=== PATIENT | female | born 1945 | race Two or more races ===

== ENCOUNTER 2021-03-30 14:19 | Emergency (ER) | payer OTHER ==
[~2021-03-30] VITALS: Ht 154.9 cm; Wt 64.0 kg
[2021-03-30] MEDS ORDERED: [UNRECOGNIZED DRUG - OTHER] (14:36)
[2021-03-30] MEDS ORDERED: [UNRECOGNIZED DRUG - OTHER] (14:37)
[2021-03-30] MEDS ORDERED: [UNRECOGNIZED DRUG - OTHER] (14:38)
[2021-03-30] MEDS ORDERED: [UNRECOGNIZED DRUG - OTHER] (14:38)
[2021-03-30] MEDS ORDERED: LEVOFLOXACIN5 ML (14:39)
[2021-03-30] MEDS ORDERED: ACETYLCYSTEINE (14:39)
[2021-03-30] MEDS ORDERED: MEDROLPACK PO (16:35)
[2021-03-30] MEDS ORDERED: BUDESONIDE0.5 MG/2 M IH (16:35)
[2021-03-30] MEDS ORDERED: PROMETH-CODEIN 65 ML PO (16:35)
[2021-03-30] MEDS ORDERED: TESSALON PERLE100 M1 PO (16:35)
[2021-03-30] MEDS ORDERED: IPRAT-ALBUT 0.5-3 ML IH (16:35)
[2021-03-30] MEDS ORDERED: MUCINEX DM ER1 EAC1 PO (16:35)
[2021-03-30] MEDS ORDERED: NIZORAL SHAMPO120 ML TOP (16:40)
[2021-03-30] MEDS ORDERED: DERMACINRX THE135 GM TOP (16:40)
== END 2021-03-30 18:25 ==
LOC: ER 14:19
DX: J06.9 Acute upper respiratory infection, unspecified (principal)

== ENCOUNTER 2023-08-12 07:52 | Outpatient (CLI) | payer OTHER ==
[~2023-08-12 07:52] MED LIST: ACETYLCYSTEINE; BUDESONIDE0.5 MG/2 M IH; DERMACINRX THE135 GM TOP; IPRAT-ALBUT 0.5-3 ML IH; LEVOFLOXACIN5 ML; MEDROLPACK PO; MUCINEX DM ER1 EAC1 PO; NIZORAL SHAMPO120 ML TOP; PROMETH-CODEIN 65 ML PO; TESSALON PERLE100 M1 PO; [UNRECOGNIZED DRUG - OTHER]; [UNRECOGNIZED DRUG - OTHER]; [UNRECOGNIZED DRUG - OTHER]; [UNRECOGNIZED DRUG - OTHER]
== END 2023-08-12 07:53 | disposition home or self-care (01) ==
LOC: NUCLEAR 07:52
PROVIDERS: ATTEND Internal Medicine
DX: R07.9 Chest pain, unspecified (principal)